=== PATIENT | female | born 1995 | race Caucasian/White ===

== ENCOUNTER 2016-07-10 10:40 | Emergency (ER) | payer OTHER ==
[2016-07-10 10:54] VITALS: BP 149/95
[2016-07-10 11:04] LABS: MANUAL DIFF NEEDED? NO
--- NOTE | 2016-07-10 11:04 | EKG Report ---
Test Performed on : 07/10/2016 10:52:06 AM Test Reason : CHEST PAIN Blood Pressure : / mmHG Vent. Rate : 086 BPM Atrial Rate : 086 BPM P-R Int : 160 ms QRS Dur : 092 ms QT Int : 370 ms P-R-T Axes : 041 010 018 degrees QTc Int : 442 ms Normal sinus rhythm. with sinus arrhythmia. Moderate voltage criteria for LVH, may be normal variant Borderline ECG No previous ECGs available Unconfirmed Result
[2016-07-10 11:10] LABS: BASO% 0.4 % (0.0-0.8); EOS# 0.18 X1000 (0.0-0.7); EOS% 2.3 % (0.0-10.0); HEMOGLOBIN 12.3 g/dL (12.0-16.0); IMM GRAN# 0.01 X1000 (0.0-0.04); IMM GRAN% 0.1 % (0.0-0.5); LYMPH# 2.14 X1000 (1.2-3.4); LYMPH% 26.9 % (20.5-51.1); MCH 28.5 PG (27-31); MCHC 33.2 g/dL (33-37); MCV 85.6 FL (81-99); MONO# 0.58 X1000 (0.11-0.59); MONO% 7.3 % (1.7-9.3); MPV 10.2 FL (7.4-10.4); PLT 280 X1000 (130-400); RBC 4.32 XMIL (4.2-5.4)
[2016-07-10 11:21] LABS: INR 1.11 (0.86-1.15); PROTIME 14.6 Seconds (12.1-15.5)
[2016-07-10 11:22] LABS: PTT PL 32.6 Seconds (22.6-43.9)
[2016-07-10 11:27] LABS: AGAP 10; ALBUMIN 4.4 g/dL (3.5-5.0); ALKALINE PHOSPHATASE 100 U/L (32-104); BUN 12 mg/dL (8-22); CALCIUM 9.7 mg/dL (8.8-10.2); CHLORIDE 98 mmol/L (98-107); CK PROFILE 56 U/L (24-173); COSMO 273; GOT 40 U/L (10-30); GPT 64 U/L (10-36); MAGNESIUM 1.8 mg/dL (1.5-2.7); POTASSIUM 3.6 mmol/L (3.5-5.1); SODIUM 137 mmol/L (136-145); TCO2 29 mmol/L (25-35); TOTAL PROTEIN 8.1 g/dL (6.3-8.3)
--- NOTE | 2016-07-10 12:33 | ED EKG INTERP ---
EKG Interpretation - EKG Time of EKG reading by physician:: 10:52 EKG Read and Signed by:: Humberto Harris EKG Interpretation (*Must complete 3 of following elements*): Abnormal Rate: 86 Rhythm: sinus arrhythmia QRS: LVH (moderate voltage criteria; may be normal variant) DE Interval: normal Attestation - Scribe Verification/Attestation Scribe:: Caitie Hay Acting as Scribe for:: Humberto Harris Scribe documention review:: This chart was documented by a scribe and accurately reflects the service the provider performed and the decisions made by the provider.
--- NOTE | 2016-07-10 12:37 | Diag Imaging Result Document ---
PROCEDURE NAME: CHEST-2 VIEWS - 07/10/2016 PA AND LATERAL RADIOGRAPH OF THE CHEST: COMPARISON: 09/12/2015. FINDINGS: The lungs are grossly clear. There is no discrete pleural fluid collection or evidence of pneumothorax. The cardiomediastinal silhouette and upper airway are grossly unremarkable. IMPRESSION: No evidence of acute chest pathology.
[2016-07-10] MEDS ORDERED: G.I. COCKTAIL PO ONE (13:48)
--- NOTE | 2016-07-10 13:50 | PROVIDER DOCUMENTATION ---
HPI-Chest Pain - General Chief Complaint: Palpitations Stated Complaint: PALPITATIONS Time Seen by Provider: 07/10/16 13:42 Source: patient Allergies/Adverse Reactions: Patient Allergies Allergy/AdvReac Type Severity Reaction Status Date / Time No Known Allergies Allergy Verified 05/29/16 18:55 - History of Present Illness-CP Nature of Presenting Problem: 21 y/o WF c no cardiac history, c/o chest pain 4 hours ago, that has not subsided that was a pressure, and made her stomach begin to burn. States this has happened once before but resolved on its own- was told she had cardiomegaly. Had sob at the onset that has since resolved. Akrtik abdominal pain , n/v/d. Denies greasy foods in her diet. denies cough, congestion fevers or chills. Review of Systems - Adult - REVIEW OF SYSTEMS - ADULT Constitutional: reports: no symptoms reported. denies: chills, fever, fatique Eyes: reports: no symptoms reported. denies: blurred vision, double vision, eye pain Ears, Nose, Mouth & Throat: reports: no symptoms reported. denies: ear pain, nose pain, throat pain Cardiovascular: reports: see HPI, chest pain, palpitations. denies: irregular heart rate, syncope Respiratory: reports: see HPI, shortness of breath. denies: cough, wheezing Gastrointestinal: reports: no symptoms reported. denies: abdominal pain, diarrhea, nausea, vomiting Genitourinary: reports: no symptoms reported. denies: dysuria, discharge, frequency, incontinence Musculoskeletal: reports: no symptoms reported. denies: bone pain, back pain, muscle aches Integumentary: reports: no symptoms reported. denies: rash Neurological: reports: no symptoms reported. denies: ataxia, dizziness/vertigo , headache/migraines Psychiatric: reports: no symptoms reported Endocrine: reports: no symptoms reported Hematologic/Lymphatic: reports: no symptoms reported Allergic/Immunologic: reports: no symptoms reported All Other Systems: Reviewed and Negative Past History - Adult - PAST MEDICAL HISTORY-ADULT Review of Records: reports: Old Records Reviewed, Nursing Assessment Review, Medications Reviewed, Social history reviewed & non-contributory. Major Childhood Illnesses: reports: denies history Cardiovascular: reports: HTN Respiratory: reports: denies history Gastrointestinal: reports: denies history Obstetrical/Gynecological: reports: denies history Genitourinary: reports: denies history Musculoskeletal: reports: denies history Neurological: reports: denies history Endocrine/Immune: reports: denies history Other Conditions: reports: denies history - PRIOR SURGERIES/PROCEDURES Surgical/Procedure History: reports: reviewed, not pertinent - PRIOR HOSPITALIZATIONS Prior Hospitalizations: reports: for other non-related - IMMUNIZATION STATUS Childhood Immunizations: See Nurse Assessment Flu Vaccine: See Nurse Assessment - FAMILY HISTORY Family History: reviewed, not pertinent - SOCIAL HISTORY Smoking: less than 1 pack/day Provider spent 3-5 mins advising pt. on dangers of tobacco.: Discussed manners to quit use, and f/u contacts for add'l counseling. Substance Use: none/never Alcohol Use Frequency: never Physical Exam-General - PHYSICAL EXAM-ADULT Initial Vital Signs Reviewed: Yes - CONSTITUTIONAL General Appearance: appears well, alert, no apparent distress - EYES Eyes: PERRL/EOMI, pink conjunctivae - HEAD, EARS, NOSE, MOUTH & THROAT HENMT: normocephalic/atraumatic, moist mucous membranes, normal ENT inspection - NECK Neck: non-tender, full range of motion, supple, normal inspection. negative: lymphadenopathy - RESPIRATORY Respiratory: chest non-tender, lungs clear, normal breath sounds, no pleuratic chest pain, no respiratory distress, no accessory muscle use. negative: respiratory distress, decreased breath sounds, accessory muscle use, crackles, rales, rhonchi, wheezing - CARDIOVASCULAR Cardiovascular: normal peripheral pulses, regular rate, rhythm, no edema, no gallop, no murmur, other (no chest wall tenderness). negative: tachycardia - GASTROINTESTINAL (ABDOMEN) Abdominal Exam: normal bowel sounds, non tender, soft, no organomegaly, no pulsatile mass. negative: abdominal bruit, abnormal bowel sounds, distended, guarding, rigid, rebound, tenderness - LYMPHATIC Lymphatic: no adenopathy - MUSCULOSKELETAL Extremity: normal gait - SKIN Integumentary: normal color, normal turgor, warm/dry - NEUROLOGIC Neurologic: grossly normal, no motor/sensory deficits - PSYCHIATRIC Psych/Mental Status: normal mood/affect, normal thought content, normal thought process, oriented x 3 Progress - PLAN OF CARE/RESULTS Progress/Plan/Lab Results: Orders Category Date Time Status Cardiac Monitoring DIRECTED Care 07/10/16 10:55 Active CHEST-2 VIEWS [RAD] Stat Exams 01/07/17 10:55 Draft CBC WITH ELECTRONIC DIFF [HEME] Stat Lab 07/10/16 10:55 Completed CK PROFILE [SP CHEM] Stat Lab 07/10/16 10:55 Completed COMPREHENSIVE METABOLIC PANEL [CHEM] Stat Lab 07/10/16 10:55 Completed MAGNESIUM [CHEM] Stat Lab 07/10/16 10:55 Completed PRO B-NATRIURETIC PEPTIDE Stat Lab 07/10/16 10:55 Completed PROTIME WITH INR PL [COAG] Stat Lab 07/10/16 10:[address] [COAG] Stat Lab 07/10/16 10:55 Completed TROPONIN T Stat Lab 07/10/16 10:55 Completed Lido/[place] Alk/Al&mg Hydrox [G.i. Cocktail] Med 07/10/16 13:48 Discontinued 30 ml PO NOW ONE EKG [EKG] Stat Ther 07/10/16 10:55 Draft Vital Signs Temp Pulse Resp BP Pulse Ox 07/10/16 10:45 97.9 F 93 H 18 149/95 100 No Known Allergies Allergy (Verified 05/29/16 18:55) Amoxicillin [Amoxil] 500 mg PO BID #14 capsule 05/29/16 Guaifenesin/D-Methorphan Hb/PE [Deconex Dmx Tablet] 1 each PO TID #30 tablet Famotidine [Pepcid] 20 mg PO DAILY #20 tablet 07/10/16 Laboratory 07/10/16 07/10/16 07/10/16 10:55 10:55 10:55 WBC 7.96 RBC 4.32 Hgb 12.3 Hct 37.0 MCV 85.6 MCH 28.5 MCHC 33.2 RDW Std Deviation 13.3 Plt Count 280 MPV 10.2 Immature Gran % (Auto) 0.1 Neut % (Auto) 63.0 Lymph % (Auto) 26.9 Rooks % (Auto) 7.3 Eos % (Auto) 2.3 Baso % (Auto) 0.4 Immature Gran # (Auto) 0.01 Neut # (Auto) 5.02 Lymph # (Auto) 2.14 Rooks # (Auto) 0.58 Eos # (Auto) 0.18 Baso # (Auto) 0.03 PT 14.6 INR 1.11 APTT (Factor Assay) 32.6 Sodium Potassium Chloride Carbon Dioxide Anion Gap BUN Creatinine Estimated GFR/1.73 m2 BUN/Creatinine Ratio Glucose Calculated Osmolality Calcium Magnesium Total Bilirubin AST ALT Alkaline Phosphatase Creatine Kinase Troponin T Twy-W-Llfvzuuzree Pept 17 Total Protein Albumin Globulin Albumin/Globulin Ratio 07/10/16 07/10/16 10:55 10:55 WBC RBC Hgb Hct MCV MCH MCHC RDW Std Deviation Plt Count MPV Immature Gran % (Auto) Neut % (Auto) Lymph % (Auto) Rooks % (Auto) Eos % (Auto) Baso % (Auto) Immature Gran # (Auto) Neut # (Auto) Lymph # (Auto) Rooks # (Auto) Eos # (Auto) Baso # (Auto) PT INR APTT (Factor Assay) Sodium 137 Potassium 3.6 Chloride 98 Carbon Dioxide 29 Anion Gap 10 BUN 12 Creatinine 0.7 Estimated GFR/1.73 m2 > 60 BUN/Creatinine Ratio 17 Glucose 92 Calculated Osmolality 273 Calcium 9.7 Magnesium 1.8 Total Bilirubin 1.30 H AST 40 H ALT 64 H Alkaline Phosphatase 100 Creatine Kinase 56 Troponin T < 0.010 Xcu-Y-Agedrkonogy Pept Total Protein 8.1 Albumin 4.4 Globulin 4.0 Albumin/Globulin Ratio 1.0 Departure - Departure Time of Disposition Order: 13:49 DIAGNOSIS: Atypical chest pain Disposition: HOME 01 Certified Medical Emergency: Emergent Condition: Stable Additional Instructions: Please follow up with Dr. Holley, cardiology ED Follow Up Instructions: You have been treated by a care provider in the Emergency Department. These instructions are being provided to you so you can have an understanding of how to care for yourself upon discharge. Upon discharge from the Emergency Department, you are responsible for making arrangements for follow-up care by a physician of your choice. Take all prescribed medications as directed. Return to the Emergency Department immediately for any new or worsening symptoms. You may call the Physician Referral phone number at [phone] to obtain a list of Physicians who are taking new patients. Prescriptions: Famotidine [Pepcid] 20 mg PO DAILY #20 tablet Referrals: Audie Mensah MD [Primary Care Provider] - Gm Holley MD [STAFF PHYSICIAN] - Attestation - Physician/ Mid-level Attestation Patient care was provided by Mid-level provider (RADIOLOGY EQUIPMENT SERVICER/PA):: Yes Mid-level provider:: Tammy Perez Mid-level documentation review:: The Mid-level provider documentation, treatment plan and medical decision making was reviewed by the physician who agrees with all treatment and medical decision making by the MLP.
== END 2016-07-10 17:00 | disposition home or self-care (01) ==
LOC: P.ED 10:40
DX: R07.89 Other chest pain (principal); R00.2 Palpitations; R06.02 Shortness of breath; I10 Essential (primary) hypertension; F17.210 Nicotine dependence, cigarettes, uncomplicated; Z71.6 Tobacco abuse counseling; Z79.899 Other long term (current) drug therapy
CPT/HCPCS: 36415; 71020; 80053; 82550; 83735; 83880; 84484; 85025; 85610; 85730; 93005; 99283

== ENCOUNTER 2016-09-14 22:24 | Emergency (ER) | payer OTHER ==
--- NOTE | 2016-09-14 23:35 | PROVIDER DOCUMENTATION ---
HPI-Rash/Wound/ReCheck <MaximilianoBennettJadon - Last Filed: 09/14/16 23:31> - General Source: patient - History of Present Illness-Dermatology Location: reports: lower extremity (right inner thigh), other (upper ABD) Quality: reports: itchy Severity: reports: mild Onset/Duration: reports: 24 hours ago Timing: reports: still present Context/Associated Symptoms: reports: rash Identifiable cause?: No Locality of Occurance: Home Similar Symptoms Previously?: No Recently seen or treated by another doctor?: No <Silva Birmingham - Last Filed: 09/14/16 23:42> - General Chief Complaint: Rash Stated Complaint: RASH Time Seen by Provider: 09/14/16 22:56 Allergies/Adverse Reactions: Allergies Allergy/AdvReac Type Severity Reaction Status Date / Time No Known Allergies Allergy Verified 09/14/16 22:41 Home Medications: Home Medication List Medication Instructions Recorded Confirmed Last Taken Type Mupirocin Ointment [Bactroban 1 applicatn TOP TID #1 tube 09/14/16 Unknown Rx Ointment] Sulfamethoxazole/Trimethoprim 1 each PO BID #14 tablet 09/14/16 Unknown Rx [Bactrim Ds Tablet] - History of Present Illness-Dermatology Nature of Presenting Problem: 21 year old F presents to the ED with a cc of a rash to upper ABD with an onset of yesterday. PT states this morning she woke with a rash to upper ABD and right inner thigh. Pt states that she moved 2 weeks ago to a new apartment. Pt states that she is the only one in the house hold who has a rash. (Silva Birmingham) Review of Systems - Adult - REVIEW OF SYSTEMS - ADULT Constitutional: denies: chills, fever Eyes: reports: no symptoms reported Ears, Nose, Mouth & Throat: reports: no symptoms reported Cardiovascular: reports: no symptoms reported Respiratory: reports: no symptoms reported Gastrointestinal: denies: diarrhea, vomiting Genitourinary: reports: no symptoms reported Musculoskeletal: denies: muscle aches, muscle weakness Integumentary: reports: itching, rash Neurological: reports: no symptoms reported Psychiatric: reports: no symptoms reported Endocrine: reports: no symptoms reported Hematologic/Lymphatic: reports: no symptoms reported Allergic/Immunologic: reports: no symptoms reported All Other Systems: Reviewed and Negative <Silva Birmingham - Last Filed: 09/14/16 23:42> Past History - Adult - PAST MEDICAL HISTORY-ADULT Major Childhood Illnesses: reports: denies history Cardiovascular: reports: HTN Respiratory: reports: denies history Gastrointestinal: reports: denies history Obstetrical/Gynecological: reports: denies history Genitourinary: reports: denies history Musculoskeletal: reports: denies history Neurological: reports: denies history Endocrine/Immune: reports: denies history Other Conditions: reports: denies history - PRIOR SURGERIES/PROCEDURES Surgical/Procedure History: reports: reviewed, not pertinent - PRIOR HOSPITALIZATIONS Prior Hospitalizations: reports: for other non-related - IMMUNIZATION STATUS Childhood Immunizations: See Nurse Assessment Flu Vaccine: See Nurse Assessment - FAMILY HISTORY Family History: reviewed, not pertinent <Wilber Viera - Last Filed: 09/14/16 23:31> - PAST MEDICAL HISTORY-ADULT Review of Records: reports: Nursing Assessment Review, Medications Reviewed Major Childhood Illnesses: reports: denies history Cardiovascular: reports: HTN (during ) - PRIOR SURGERIES/PROCEDURES Surgical/Procedure History: reports: BTL - IMMUNIZATION STATUS Childhood Immunizations: See Nurse Assessment Flu Vaccine: See Nurse Assessment - SOCIAL HISTORY Smoking: cigarettes, less than 1 pack/day Provider spent 3-5 mins advising pt. on dangers of tobacco.: Discussed manners to quit use, and f/u contacts for add'l counseling. Substance Use: none/never Alcohol Use Frequency: never <Silva Birmingham - Last Filed: 09/14/16 23:42> Physical Exam-General - PHYSICAL EXAM-ADULT Initial Vital Signs Reviewed: Yes - CONSTITUTIONAL General Appearance: appears well, alert, no apparent distress - RESPIRATORY Respiratory: chest non-tender, lungs clear, normal breath sounds - CARDIOVASCULAR Cardiovascular: normal peripheral pulses, regular rate, rhythm, no edema - SKIN Integumentary: rash (insect bite like lesions (macular in appearance) to upper ABD and right inner thigh with mild erythema surrounding. no drainage) <Silva Birmingham - Last Filed: 09/14/16 23:42> Progress <Wilber Viera - Last Filed: 09/14/16 23:31> <Silva Birmingham - Last Filed: 09/14/16 23:42> - PLAN OF CARE/RESULTS Progress/Plan/Lab Results: Vital Signs - 24 hr 09/14/16 22:35 Temperature 98.2 F Pulse Rate 103 H Respiratory 18 Rate Blood Pressure 136/96 O2 Sat by Pulse 100 Oximetry Pt given results and will be d/c home w/ rx to follow up with PCP. Pt verbally understood instructions. PT remained clinically stable throughout the course of the ED stay and will return if symptoms worsen. (Silva Birmingham) Departure - Departure Time of Disposition Order: 23:31 Certified Medical Emergency: Emergent <Wilber Viera - Last Filed: 09/14/16 23:31> <Silva Birmingham - Last Filed: 09/14/16 23:42> - Departure DIAGNOSIS: Rash/skin eruption, Insect bite Disposition: HOME 01 Condition: Stable Additional Instructions: CHANGE IN CONDITION: If your condition changes contact your physician and/or return to the Emergency Department. Changes may include but are not limited to: Shortness of Breath, Increased Fatigue, Excessive Bleeding, Unexplained weight loss or gain, Unmanageable pain, Signs/Symptoms of Infection. ACTIVITY: Limitations: _None _No driving until directed by M.D _No driving while taking pain medication _No heavy lifting _Other: DIET: _Regular _ADA Calorie Diet _Healthy Heart _Fluid Restriction per day _Other: WOUND CARE: Prescriptions: Sulfamethoxazole/Trimethoprim [Bactrim Ds Tablet] 1 each PO BID #14 tablet Mupirocin Ointment [Bactroban Ointment] 1 applicatn TOP TID #1 tube Referrals: Audie Mensah MD [Primary Care Provider] - Attestation - Scribe Verification/Attestation Scribe:: Silva Birmingham Acting as Scribe for:: Wilber Viera Scribe documention review:: This chart was documented by a scribe and accurately reflects the service the provider performed and the decisions made by the provider. <Silva Birmingham - Last Filed: 09/14/16 23:42> Physician Attestation - Physician Attestation I, the provider, attest to the following statement:: Wilber Viera Physician documentation Attestation:: This documentation recorded by the scribe accurately reflects the service I personally performed and the decisions made by me. <Silva Birmingham - Last Filed: 09/14/16 23:42>
[2016-09-14 23:46] VITALS: BP 147/95
[2016-09-14] MEDS ORDERED: PREDNISONE PO ONE (23:52)
== END 2016-09-14 23:46 | disposition home or self-care (01) ==
LOC: ED 22:24
DX: S30.861A Insect bite (nonvenomous) of abdominal wall, initial encounter (principal); S70.361A Insect bite (nonvenomous), right thigh, initial encounter; W57.XXXA Bitten or stung by nonvenomous insect and other nonvenomous arthropods, initial encounter; R21 Rash and other nonspecific skin eruption; L29.9 Pruritus, unspecified; F17.210 Nicotine dependence, cigarettes, uncomplicated; Z71.6 Tobacco abuse counseling